=== PATIENT | female | born 2000 | race Hispanic/Latino ===

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

== ENCOUNTER 2020-01-05 08:48 | Emergency (ER) | payer BC ==
[2020-01-05 09:50] LABS: Absolute Lymphocytes (CBC) 1.6 K/uL (0.7-4.9); Basophils % 0.2 % (0-1.3); Hematocrit 42.1 % (36.0-45.0); MPV 8.4 fL (7.6-11.3); RBC Red Blood Cell Count 4.79 M/uL (3.86-4.86)
[2020-01-05 10:03] LABS: ALT/SGPT 19 U/L (12-78); AST/SGOT 15 U/L (15-37); Albumin 4.2 g/dL (3.4-5.0); Alkaline Phosphatase 80 U/L (45-117); BUN Blood Urea Nitrogen 9 mg/dL (7-18); Bicarbonate 26 mmol/L (21-32); Bilirubin Direct 0.2 mg/dL (0-0.2); Bilirubin Total 0.8 mg/dL (0.2-1.0); Glucose Level 107 mg/dL (74-106); Lipase 82 U/L (73-393); Potassium 3.7 mmol/L (3.5-5.1); Protein, Total 7.7 g/dL (6.4-8.2); Sodium Level 140 mmol/L (136-145)
[2020-01-05] MEDS ORDERED: ONDANSETRON 4 MG/2 ML VIAL ONE (10:08)
[2020-01-05] MEDS ORDERED: DIPHENHYDRAMINE 50 MG/ML VIAL ONE (10:08)
[2020-01-05] MEDS ORDERED: NA CHLORIDE 0.9% 1,000 ML ONE (10:08)
[2020-01-05] MEDS ORDERED: FAMOTIDINE 20 MG/2 ML VIAL IV ONE (10:09)
--- NOTE | 2020-01-05 11:29 | RAD REPORT ---
EXAM DESCRIPTION: US - Abdomen Exam Limited - 01/05/2020 11:13 am CLINICAL HISTORY: ABD PAIN COMPARISON: Abdomen Exam Limited dated 11/15/2017 FINDINGS: The gallbladder demonstrates no gallstones. No pericholecystic fluid or gallbladder wall t hickening. The common bile duct is normal measuring 5 mm. The liver demonstrates no findings of intrahepatic biliary dilatation. IMPRESSION: Unremarkable examination.
[2020-01-05 12:04] LABS: Barbiturates NEGATIVE (NEGATIVE); Benzodiazepines NEGATIVE (NEGATIVE); Cocaine NEGATIVE (NEGATIVE); METHAMPHETAM NEGATIVE (NEGATIVE); Methadone NEGATIVE (NEGATIVE); Opiates NEGATIVE (NEGATIVE); Phencyclidine NEGATIVE (NEGATIVE); THC Cannibis POSITIVE (NEGATIVE)
--- NOTE | 2020-01-05 12:28 | ER ---
Nurse's Notes [facility] Name: Pooja Wang Age: 19 yrs Sex: Female : 2000 Arrival Date: 01/05/2020 Time: 08:50 Bed 20 Private MD: Diagnosis: Nausea and vomiting Presentation: 01/04 08:55 Chief complaint: Patient states: "I'm an over thinker so I've been over thinking a lot ss of situations. But when I calm myself down my head is still running which makes me nauseous and throw up. I saw Dr. Almonte and he just gave me something for my stomach rather than my anxiety and I just threw that up. I haven't gotten anymore than 4 hours of sleep.". Coronavirus screen: Proceed with normal triage. Patient denies a cough. Patient denies measured and/or subjective temperature greater than 100.4F prior to today's visit. Patient denies travel on a cruise ship or to a country the [facility] currently lists as an affected area. Patient denies contact with known and/or suspected case of COVID-19. Ebola Screen: Patient denies exposure to infectious person. Patient denies travel to an Ebola-affected area in the 21 days before illness onset. Initial Sepsis Screen: Does the patient meet any 2 criteria? No. Patient's initial sepsis screen is negative. Does the patient have a suspected source of infection? No. Patient's initial sepsis screen is negative. Risk Assessment: Do you want to hurt yourself or someone else? Patient reports no desire to harm self or others. Note pt reports she has been dealing with an ex trying to come back into her life and when she even hears his name it upsets her. Onset of symptoms was July 2019. 08:55 Method Of Arrival: Ambulatory ss 08:55 Acuity: SHAUN 5 ss Triage Assessment: 10:10 GI: Reports. 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 - Social history:: Smoking status: Patient denies any tobacco usage or history of. Screenin:00 Abuse screen: Denies threats or abuse. Denies injuries from another. Nutritional ca1 screening: No deficits noted. Tuberculosis screening: No symptoms or risk factors identified. Fall Risk IV access (20 points). Assessment: 10:00 General: Appears in no apparent distress. comfortable, Behavior is calm, cooperative, ca1 appropriate for age. General: Reports anxiety and nausea x 5 days. . Pain: Denies pain. Neuro: Level of Consciousness is awake, alert, obeys commands, Oriented to person, place, time, situation, Appropriate for age. Cardiovascular: Heart tones S1 S2 present Capillary refill < 3 seconds Patient's skin is warm and dry. Respiratory: Airway is patent Respiratory effort is even, unlabored, Respiratory pattern is regular, symmetrical, Breath sounds are clear bilaterally. GI: Abdomen is flat, non-distended, Bowel sounds present X 4 quads. Abd is soft and non tender X 4 quads. : No signs and/or symptoms were reported regarding the genitourinary system. EENT: No signs and/or symptoms were reported regarding the EENT system. Derm: Skin is intact, is healthy with good turgor, Skin is pink, warm \\T\\ dry. Musculoskeletal: Circulation, motion, and sensation intact. Capillary refill < 3 seconds. 11:00 Reassessment: Patient appears in no apparent distress at this time. Patient and/or ca1 family updated on plan of care and expected duration. Pain level reassessed. Patient is alert, oriented x 3, equal unlabored respirations, skin warm/dry/pink. 12:08 Reassessment: Patient appears in no apparent distress at this time. Patient and/or ca1 family updated on plan of care and expected duration. Pain level reassessed. Patient is alert, oriented x 3, equal unlabored respirations, skin warm/dry/pink. 12:42 Reassessment: Patient appears in no apparent distress at this time. Patient is alert, ca1 oriented x 3, equal unlabored respirations, skin warm/dry/pink. Vital Signs: 08:55 BP 138 / 91; Pulse 102; Resp 16; Temp 97.4(TE); Pulse Ox 98% on R/A; Weight 63.5 kg; ss Height 5 ft. 1 in. (154.94 cm); Pain 0/10; 10:05 BP 121 / 75; Pulse 82; Resp 16 S; Pulse Ox 98% on R/A; ca1 11:29 BP 119 / 69; Pulse 102; Resp 16 S; Pulse Ox 97% on R/A; ca1 12:35 BP 123 / 86; Pulse 96; Resp 15 S; Pulse Ox 98% on R/A; ca1 08:55 Body Mass Index 26.45 (63.50 kg, 154.94 cm) ED Course: 08:50 Patient arrived in ED. ag5 08:58 Triage completed. ss 08:59 Arm band placed on right wrist. ss 09:02 Freddie Pepe PA is PHCP. cp 09:02 Itz Celestin MD is Attending Physician. cp 09:35 Initial lab(s) drawn, by me, sent to lab. Inserted saline lock: 20 gauge in right em antecubital area, using aseptic technique. Blood collected. 09:57 Amanda Prince, RN is Primary Nurse. ca1 10:00 Patient has correct armband on for positive identification. Placed in gown. Bed in low ca1 position. Call light in reach. Side rails up X 1. Pulse ox on. NIBP on. Door closed. Noise minimized. Lights dimmed. Warm blanket given. 11:13 US Abdomen Limited: RUQ In Process Unspecified. EDMS 12:43 No provider procedures requiring assistance completed. IV discontinued, intact, ca1 bleeding controlled, No redness/swelling at site. Pressure dressing applied. Administered Medications: 10:00 Drug: NS 0.9% 1000 ml Route: IV; Rate: 1 bolus; Site: right antecubital; ca1 11:05 Follow up: Response: No adverse reaction; IV Status: Completed infusion ca1 10:01 Drug: Pepcid 20 mg Route: IVP; Site: right antecubital; ca1 11:28 Follow up: Response: No adverse reaction ca1 10:04 Drug: Zofran (Ondansetron) 4 mg Route: IVP; Site: right antecubital; ca1 11:05 Follow up: Response: No adverse reaction; Nausea is decreased ca1 10:07 Drug: Benadryl 12.5 mg Route: IVP; Site: right antecubital; ca1 11:28 Follow up: Response: No adverse reaction ca1 Outcome: 12:27 Discharge ordered by . cp 12:43 Discharged to home ambulatory. ca1 12:43 Condition: stable 12:43 Discharge instructions given to patient, Instructed on discharge instructions, follow up and referral plans. no drinking with medication, no driving heavy equipment, medication usage, Demonstrated understanding of instructions, follow-up care, medications, Prescriptions given X 2. 12:43 Patient left the ED. ca1 Signatures: Dispatcher [employer] Andrei Salmeron RN RN em Radha Gomez RN RN ss Page, Corey, PA PA cp Acob, Cheryl, RN RN ca1 Emily Rodriguez ag5 Corrections: (The following items were deleted from the chart) 12:44 12:43 Discharge instructions given to patient, Instructed on discharge instructions, ca1 follow up and referral plans. medication usage, Demonstrated understanding of instructions, follow-up care, medications, Prescriptions given X 2, ca1
--- NOTE | 2020-01-05 12:28 | EDPHYS ---
Physician Documentation [facility] Name: Pooja Wang Age: 19 yrs Sex: Female : 2000 Arrival Date: 01/05/2020 Time: 08:50 Bed 20 Private MD: ED Physician Itz Celestin HPI: 01/04 09:30 This 19 yrs old Female presents to ER via Ambulatory with complaints of cp Anxiety, Nausea. 09:30 The patient presents to the emergency department with nausea, that is moderate, cp vomiting, that is intermittent. 09:30 Onset: The symptoms/episode began/occurred 5 day(s) ago. cp 09:30 Possible causes: anxiety. The symptoms are alleviated by nothing. Associated signs and cp symptoms: Pertinent negatives: constipation, diarrhea, fever, GI bleeding. Severity of symptoms: in the emergency department the symptoms are unchanged despite home interventions. The patient has been recently seen by a physician: Dr. Almonte with similar presenting complaints, given antiemetic. 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 - Social history:: Smoking status: Patient denies any tobacco usage or history of. ROS: 09:35 Constitutional: Negative for body aches, chills, fever. cp 09:35 Eyes: Negative for injury, pain, redness, and discharge. cp 09:35 ENT: Negative for ear pain, sore throat. 09:35 Cardiovascular: Negative for chest pain, palpitations. 09:35 Respiratory: Negative for cough, shortness of breath, wheezing. 09:35 Abdomen/GI: Positive for nausea, vomiting, Negative for diarrhea, constipation, anorexia, hematemesis, black/tarry stool, rectal bleeding. 09:35 Back: Negative for radiated pain. 09:35 Skin: Negative for rash. 09:35 Neuro: Negative for altered mental status, headache, weakness. 09:35 All other systems are negative. Exam: 09:45 Constitutional: The patient appears in no acute distress, alert, awake, cp non-diaphoretic, non-toxic, well developed, well nourished. 09:45 Head/Face: Normocephalic, atraumatic. cp 09:45 Eyes: Periorbital structures: appear normal, Conjunctiva: normal, no exudate, no injection, Sclera: no appreciated abnormality, Lids and lashes: appear normal, bilaterally. 09:45 ENT: External ear(s): are unremarkable, Ear canal(s): are normal, clear, TM's: dullness, bilaterally, Nose: is normal, Mouth: Lips: moist, Oral mucosa: pink and intact, moist, Posterior pharynx: is normal, airway is patent, no erythema, no exudate. 09:45 Neck: ROM/movement: is normal, is supple, no meningismus, no nuchal rigidity, Lymph nodes: no appreciated lymphadenopathy. 09:45 Chest/axilla: Inspection: normal, Palpation: is normal, no crepitus, no tenderness. 09:45 Cardiovascular: Rate: tachycardic, Rhythm: regular. 09:45 Respiratory: the patient does not display signs of respiratory distress, Respirations: normal, no use of accessory muscles, no retractions, labored breathing, is not present, Breath sounds: are clear throughout, no decreased breath sounds, no stridor, no wheezing. 09:45 Abdomen/GI: Inspection: abdomen appears normal, Bowel sounds: active, all quadrants, Palpation: soft, in all quadrants, mild abdominal tenderness, in the epigastric area and right upper quadrant, rebound tenderness, is not appreciated, involuntary guarding, is not appreciated. 09:45 Back: pain, is absent, ROM is normal. 09:45 Skin: no rash present. 09:45 Neuro: Orientation: to person, place \T\ time. Mentation: is normal, Motor: moves all fours, strength is normal. 09:45 Psych: Behavior/mood is pleasant, cooperative, Affect is calm, Judgement / Insight is normal. Delusions/hallucinations are not present. Vital Signs: 08:55 BP 138 / 91; Pulse 102; Resp 16; Temp 97.4(TE); Pulse Ox 98% on R/A; Weight 63.5 kg; ss Height 5 ft. 1 in. (154.94 cm); Pain 0/10; 10:05 BP 121 / 75; Pulse 82; Resp 16 S; Pulse Ox 98% on R/A; ca1 11:29 BP 119 / 69; Pulse 102; Resp 16 S; Pulse Ox 97% on R/A; ca1 12:35 BP 123 / 86; Pulse 96; Resp 15 S; Pulse Ox 98% on R/A; ca1 08:55 Body Mass Index 26.45 (63.50 kg, 154.94 cm) ss MDM: 09:16 Patient medically screened. cp 10:00 Differential diagnosis: gastritis, cholecystitis, pancreatitis, appendicitis, viral cp gastroenteritis, gastroenteritis. 12:27 Data reviewed: vital signs, nurses notes, lab test result(s), radiologic studies, cp ultrasound. 12:27 Counseling: I had a detailed discussion with the patient and/or guardian regarding: the cp historical points, exam findings, and any diagnostic results supporting the discharge/admit diagnosis, lab results, radiology results, to return to the emergency department if symptoms worsen or persist or if there are any questions or concerns that arise at home. Response to treatment: the patient's symptoms have markedly improved after treatment, patient is well hydrated. Special discussion: Based on the patient's Hx, exam, and Dx evaluation, there is no indication for emergent surgery or inpatient Tx. It is understood by the patient/guardian that if the Sx's persist or worsen they need to return immediately for re-evaluation. ED course: VSS. Nausea improved and vomiting resolved. Will discharge to home for continued monitoring. 01/04 09:25 Order name: Basic Metabolic Panel; Complete Time: 10:40 cp 01/04 10:40 Interpretation: Normal except: GLUC 107. cp 01/04 09:25 Order name: CBC with Diff; Complete Time: 10:40 cp 01/04 10:41 Interpretation: Normal except: MCV 87.9; MCH 29.6; ISAMAR% 81.3; LYM% 15.0; NEUT A 8.5. cp 01/04 09:25 Order name: Hepatic Function; Complete Time: 10:40 cp 01/04 09:25 Order name: Lipase; Complete Time: 10:40 cp 01/04 09:25 Order name: UDS; Complete Time: 12:27 cp 01/04 12:27 Interpretation: Normal except: THC POSITIVE. cp 01/04 11:47 Order name: Urine Dipstick--Ancillary (enter results) em1 01/04 09:25 Order name: IV Saline Lock; Complete Time: 09:40 cp 01/04 09:25 Order name: Labs collected and sent; Complete Time: 09:40 cp 01/04 09:25 Order name: Urine Dipstick-Ancillary (obtain specimen); Complete Time: 11:45 cp 01/04 10:42 Order name: US Abdomen Limited: RUQ; Complete Time: 11:32 cp 01/04 11:32 Interpretation: Report reviewed. cp 01/04 09:25 Order name: Urine Test (obtain specimen); Complete Time: 11:45 cp 01/04 11:27 Order name: PO challenge; Complete Time: 11:57 cp Administered Medications: 10:00 Drug: NS 0.9% 1000 ml Route: IV; Rate: 1 bolus; Site: right antecubital; ca1 11:05 Follow up: Response: No adverse reaction; IV Status: Completed infusion ca1 10:01 Drug: Pepcid 20 mg Route: IVP; Site: right antecubital; ca1 11:28 Follow up: Response: No adverse reaction ca1 10:04 Drug: Zofran (Ondansetron) 4 mg Route: IVP; Site: right antecubital; ca1 11:05 Follow up: Response: No adverse reaction; Nausea is decreased ca1 10:07 Drug: Benadryl 12.5 mg Route: IVP; Site: right antecubital; ca1 11:28 Follow up: Response: No adverse reaction ca1 Disposition: 15:54 Co-signature as Attending Physician, Itz Celestin MD I agree with the assessment and kdr plan of care. Disposition: 01/05/20 12:27 Discharged to Home. Impression: Nausea and vomiting. - Condition is Stable. - Discharge Instructions: Nausea and Vomiting, Adult. - Prescriptions for Phenergan 25 mg Rectal Suppository - insert 1 suppository by RECTAL route every 6 hours As needed; 12 suppository. promethazine 25 mg Oral Tablet - take 1 tablet by ORAL route every 6 hours As needed; 20 tablet. - Work release form, Medication Reconciliation Form, Thank You Letter, Antibiotic Education, Prescription Opioid Use form. - Follow up: Private Physician; When: 2 - 3 days; Reason: Recheck today's complaints. - Problem is new. - Symptoms have improved. Signatures: Dispatcher [facility] Itz Celestin MD MD kdr Smirch, Shelby, RN RN ss Freddie Pepe PA PA cp Amanda Prince RN RN ca1 Corrections: (The following items were deleted from the chart) 12:43 12:27 01/05/2020 12:27 Discharged to Home. Impression: Nausea and vomiting. Condition ca1 is Stable. Forms are Medication Reconciliation Form, Thank You Letter, Antibiotic Education, Prescription Opioid Use. Follow up: Private Physician; When: 2 - 3 days; Reason: Recheck today's complaints. Problem is new. Symptoms have improved. cp
[2020-01-05 12:33] LABS: Urine Blood NEGATIVE (NEG); Urine Glucose NEGATIVE (NEG); Urine Protein NEGATIVE (NEG)
[2020-01-05 12:57] VITALS: TEMP 97.4; O2SAT 98
[2020-01-05 13:13] VITALS: BP 123/86
== END 2020-01-05 12:43 | disposition home or self-care (01) ==
LOC: ER 08:48
DX: R11.2 Nausea with vomiting, unspecified (principal); Z88.1 Allergy status to other antibiotic agents
CPT/HCPCS: 96361; 85025; 80048; 36415; 80076; 80307 ×8; 81003; 83690; 76705; 96375; 96374; 99284; J1200; J7030; J2405

== ENCOUNTER 2020-07-31 04:01 | Emergency (ER) | payer BC, SELFPAY ==
[2020-07-31 05:00] LABS: RBC Red Blood Cell Count 4.24 M/uL (3.86-4.86)
[2020-07-31 05:01] LABS: Absolute Lymphocytes (CBC) 2.8 K/uL (0.7-4.9); Basophils % 0.4 % (0-1.3); Hematocrit 36.3 % (36.0-45.0); MPV 7.9 fL (7.6-11.3)
[2020-07-31] MEDS ORDERED: NA CHLORIDE 0.9% 1,000 ML ONE (05:08)
[2020-07-31] MEDS ORDERED: FAMOTIDINE 20 MG/2 ML VIAL IV ONE (05:08)
[2020-07-31] MEDS ORDERED: ONDANSETRON 4 MG/2 ML VIAL ONE (05:38)
[2020-07-31] MEDS ORDERED: MORPHINE 2 MG/ML SYR ONE (05:38)
[2020-07-31 05:54] LABS: ALT/SGPT 15 U/L (12-78); AST/SGOT 9 U/L (15-37); Albumin 3.6 g/dL (3.4-5.0); Alkaline Phosphatase 52 U/L (45-117); BUN Blood Urea Nitrogen 7 mg/dL (7-18); Bicarbonate 26 mmol/L (21-32); Bilirubin Direct 0.1 mg/dL (0-0.2); Bilirubin Total 0.5 mg/dL (0.2-1.0); Glucose Level 94 mg/dL (74-106); HCG, Quantitative 73403 mIU/mL (1-3); Lipase 101 U/L (73-393); Potassium 3.4 mmol/L (3.5-5.1); Protein, Total 7.4 g/dL (6.4-8.2); Sodium Level 139 mmol/L (136-145)
--- NOTE | 2020-07-31 07:01 | EDPHYS ---
Physician Documentation [facility] Name: Pooja Wang Age: 20 yrs Sex: Female : 2000 Arrival Date: 07/31/2020 Time: 04:01 Bed 19 Private MD: Jame Almonte B ED Physician Kvng Seals HPI: 07/31 04:54 This 20 yrs old Female presents to ER via Ambulatory with complaints of mh7 Abdominal Pain, Vomiting - blood. 04:54 The patient presents to the emergency department with nausea, that is moderate, mh7 vomiting, that is intermittent, 2 times since the onset of symptoms, abdominal pain, of the epigastric area, described as burning, and does not radiate. Onset: The symptoms/episode began/occurred today. Possible causes: bad food exposure, Pasta, . The symptoms are aggravated by nothing. The symptoms are alleviated by nothing. Associated signs and symptoms: Pertinent positives: abdominal pain, nausea, vomiting, Pertinent negatives: anorexia, belching, constipation, diarrhea, dysuria, fever, flatulence, GI bleeding, hematuria, vaginal discharge, Vaginal bleeding. Severity of symptoms: At their worst the symptoms were moderate today, in the emergency department the symptoms have improved moderately. 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 - Social history:: Smoking status: Patient denies any tobacco usage or history of. ROS: 04:54 Constitutional: Negative for fever, chills, and weight loss, Eyes: Negative for injury, mh7 pain, redness, and discharge, ENT: Negative for injury, pain, and discharge, Neck: Negative for injury, pain, and swelling, Cardiovascular: Negative for chest pain, palpitations, and edema, Respiratory: Negative for shortness of breath, cough, wheezing, and pleuritic chest pain, Back: Negative for injury and pain, : Negative for injury, bleeding, discharge, and swelling, MS/Extremity: Negative for injury and deformity, Skin: Negative for injury, rash, and discoloration, Neuro: Negative for headache, weakness, numbness, tingling, and seizure, Psych: Negative for depression, anxiety, suicide ideation, homicidal ideation, and hallucinations, Allergy/Immunology: Negative for hives, rash, and allergies, Endocrine: Negative for neck swelling, polydipsia, polyuria, polyphagia, and marked weight changes, Hematologic/Lymphatic: Negative for swollen nodes, abnormal bleeding, and unusual bruising. Exam: 04:54 Constitutional: This is a well developed, well nourished patient who is awake, alert, mh7 and in no acute distress. Head/Face: Normocephalic, atraumatic. Eyes: Pupils equal round and reactive to light, extra-ocular motions intact. Lids and lashes normal. Conjunctiva and sclera are non-icteric and not injected. Cornea within normal limits. Periorbital areas with no swelling, redness, or edema. Neck: Trachea midline, no thyromegaly or masses palpated, and no cervical lymphadenopathy. Supple, full range of motion without nuchal rigidity, or vertebral point tenderness. No Meningismus. Chest/axilla: Normal chest wall appearance and motion. Nontender with no deformity. No lesions are appreciated. Cardiovascular: Regular rate and rhythm with a normal S1 and S2. No gallops, murmurs, or rubs. Normal PMI, no JVD. No pulse deficits. Respiratory: Lungs have equal breath sounds bilaterally, clear to auscultation and percussion. No rales, rhonchi or wheezes noted. No increased work of breathing, no retractions or nasal flaring. Back: No spinal tenderness. No costovertebral tenderness. Full range of motion. Skin: Warm, dry with normal turgor. Normal color with no rashes, no lesions, and no evidence of cellulitis. MS/ Extremity: Pulses equal, no cyanosis. Neurovascular intact. Full, normal range of motion. Neuro: Awake and alert, GCS 15, oriented to person, place, time, and situation. Cranial nerves II-XII grossly intact. Motor strength 5/5 in all extremities. Sensory grossly intact. Cerebellar exam normal. Normal gait. Psych: Awake, alert, with orientation to person, place and time. Behavior, mood, and affect are within normal limits. 04:54 Abdomen/GI: Inspection: gravid appearance, is noted, Bowel sounds: normal, in all quadrants, Palpation: mild abdominal tenderness, in the epigastric area, Rectal exam: the exam is deferred, because of patient request, Indicators: McBurney's point is not tender, Albarran's sign is negative, Rovsing's sign is negative, Obturator sign is negative, Psoas sign is negative, Liver: no appreciated palpable abnormalities, Hernia: not appreciated. Vital Signs: 04:29 Weight 75.75 kg (R); Height 5 ft. 2 in. (157.48 cm); Pain 0/10; lp1 04:30 BP 111 / 82; Pulse 90; Resp 16; Temp 98.3(O); Pulse Ox 100% on R/A; fu 05:00 BP 123 / 80; Pulse 97; Pulse Ox 100% ; fu 06:46 BP 120 / 74; Pulse 80; Resp 18; Pulse Ox 99% on R/A; ea 04:29 Body Mass Index 30.54 (75.75 kg, 157.48 cm) lp1 MDM: 06:58 Differential diagnosis: Nonspecific abd pain, gastritis, pancreatitis. Data reviewed: [facility] vital signs, nurses notes, lab test result(s), Beta HCG: CBC, electrolytes, urinalysis. Data interpreted: Pulse oximetry: on room air. Counseling: I had a detailed discussion with the patient and/or guardian regarding: the historical points, exam findings, and any diagnostic results supporting the discharge/admit diagnosis, lab results, the need for outpatient follow up, to return to the emergency department if symptoms worsen or persist or if there are any questions or concerns that arise at home. Response to treatment: the patient's symptoms have resolved after treatment, the patient's blood pressure is in an acceptable range, mental status has returned to baseline, the patient no longer shows bradycardia, the patient is not short of breath, the patient is not tachycardic, the patient's pain is gone, the patient's temperature has normalized. 07:00 Patient medically screened. [facility] 07/31 04:33 Order name: Basic Metabolic Panel [facility] 07/31 04:33 Order name: CBC with Diff [facility] 07/31 04:33 Order name: Hepatic Function [facility] 07/31 04:33 Order name: Lipase [facility] 07/31 04:33 Order name: HCG-Quantitative [facility] 07/31 05:05 Order name: CBC with Automated Diff; Complete Time: 05:09 [facility] 07/31 05:54 Order name: Basic Metabolic Panel; Complete Time: 06:35 [facility] 07/31 05:54 Order name: Liver (Hepatic) Function; Complete Time: 06:35 [facility] 07/31 05:54 Order name: Lipase; Complete Time: 06:35 [facility] 07/31 05:54 Order name: HCG, Quantitative; Complete Time: 06:35 [facility] 07/31 06:59 Order name: Urine Culture [facility] 07/31 07:00 Order name: Urine --Ancillary (enter results) [facility] 07/31 07:00 Order name: Urine Dipstick--Ancillary (enter results) [facility] 07/31 04:33 Order name: IV Saline Lock; Complete Time: 04:53 [facility] 07/31 04:33 Order name: Labs collected and sent; Complete Time: 04:53 [facility] 07/31 04:33 Order name: Urine Dipstick-Ancillary (obtain specimen); Complete Time: 07:00 [facility] Administered Medications: 04:55 Drug: Pepcid 20 mg Route: IVP; Site: right antecubital; ea 07:11 Follow up: Response: No adverse reaction ea 04:56 Drug: NS 0.9% 1000 ml Route: IV; Rate: 1000 ml; Site: right antecubital; ea 07:10 Follow up: Response: No adverse reaction; IV Status: Completed infusion; IV Intake: ea 1000ml 05:28 Drug: Zofran (Ondansetron) 4 mg Route: IVP; Site: right antecubital; ea 07:11 Follow up: Response: No adverse reaction ea 07:11 Not Given (Patient Refused): morphine 2 mg IVP once; (PAIN>8) RASS on ADMN: Combtv4, ea Very Agttd3, Agttd2, Rstlss1, AlertClm0, Drwsy-1, LtSdtn-2, ModSdtn-3, DpSdtn-4, UnArsble-5 x2 Disposition: 07/31/20 07:00 Discharged to Home. Impression: Upper abdominal pain, unspecified, Vomiting of , unspecified, Urinary tract infection, site not specified. - Condition is Stable. - Discharge Instructions: Nausea and Vomiting, Adult, [id number]-[id number], Urinary Tract Infection, Adult, Zmhr-fj-Zjog, Abdominal Pain During , [id number]-[id number]. - Prescriptions for Zofran ODT 4 mg Oral tablet,disintegrating - place 1 tablet by TRANSLINGUAL route every 8 hours As needed; 6 tablet. Pepcid 20 mg Oral Tablet - take 1 tablet by ORAL route every 12 hours for 5 days; 10 tablet. Macrobid 100 mg Oral Capsule - take 1 capsule by ORAL route every 12 hours for 7 days; 14 capsule. - Work release form, Medication Reconciliation Form, Thank You Letter, Antibiotic Education, Prescription Opioid Use form. - Follow up: Private Physician; When: 1 - 2 days; Reason: Worsening of condition, Recheck today's complaints, Continuance of care, Re-evaluation by your physician. - Problem is new. - Symptoms have improved. Signatures: Dispatcher [employer] EDMS Phuong Payne RN RN lp1 Madalyn Marcos RN RN ea Holmes, Maurice, MD MD mh7 Corrections: (The following items were deleted from the chart) 07:02 07:00 07/31/2020 07:00 Discharged to Home. Impression: Upper abdominal pain, mh7 unspecified; Vomiting of , unspecified. Condition is Stable. Forms are Medication Reconciliation Form, Thank You Letter, Antibiotic Education, Prescription Opioid Use. Follow up: Private Physician; When: 1 - 2 days; Reason: Worsening of condition, Recheck today's complaints, Continuance of care, Re-evaluation by your physician. Problem is new. Symptoms have improved. 7 07:11 07:02 07/31/2020 07:00 Discharged to Home. Impression: Upper abdominal pain, ea unspecified; Vomiting of , unspecified; Urinary tract infection, site not specified. Condition is Stable. Discharge Instructions: Nausea and Vomiting, Adult, Kaew-tc-Qswv, Urinary Tract Infection, Adult, Tplb-ye-Rcow, Abdominal Pain During , Jhns-ap-Qyok. Prescriptions for Zofran ODT 4 mg Oral tablet,disintegrating - place 1 tablet by TRANSLINGUAL route every 8 hours As needed; 6 tablet, Pepcid 20 mg Oral Tablet - take 1 tablet by ORAL route every 12 hours for 5 days; 10 tablet, Macrobid 100 mg Oral Capsule - take 1 capsule by ORAL route every 12 hours for 7 days; 14 capsule. and Forms are Medication Reconciliation Form, Thank You Letter, Antibiotic Education, Prescription Opioid Use. Follow up: Private Physician; When: 1 - 2 days; Reason: Worsening of condition, Recheck today's complaints, Continuance of care, Re-evaluation by your physician. Problem is new. Symptoms have improved. mh7
--- NOTE | 2020-07-31 07:01 | ER ---
Nurse's Notes [facility] Name: Pooja Wang Age: 20 yrs Sex: Female : 2000 Arrival Date: 07/31/2020 Time: 04:01 Bed 19 Private MD: Jame Almonte B Diagnosis: Upper abdominal pain, unspecified;Vomiting of , unspecified;Urinary tract infection, site not specified Presentation: 07/31 04:29 Chief complaint: Patient states: Woken suddenly this morning with vomiting at 0345; lp1 reports "2 drops of blood in vomit"; Denies any other symptoms; States 10 weeks . Coronavirus screen: Client denies travel out of the [place] in the last 14 days. nausea, vomiting. Ebola Screen: No symptoms or risks identified at this time. Risk Assessment: Do you want to hurt yourself or someone else? Patient reports no desire to harm self or others. Onset of symptoms was July 31, 2020 at 03:45. 04:29 Method Of Arrival: Ambulatory lp1 04:29 Acuity: SHAUN 3 lp1 04:54 Initial Sepsis Screen: Does the patient meet any 2 criteria? No. Patient's initial ea sepsis screen is negative. Does the patient have a suspected source of infection? No. Patient's initial sepsis screen is negative. Triage Assessment: 04:32 GI: Pt is actively vomiting. lp1 04:32 General: Appears uncomfortable, Behavior is appropriate for age. Pain: Complains of ea pain in abdomen. Neuro: Level of Consciousness is awake, alert, obeys commands, Oriented to person, place, time. Respiratory: Airway is patent Respiratory effort is even, unlabored, Respiratory pattern is regular, symmetrical. Derm: Skin is pink, warm \\T\\ dry. 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 - Social history:: Smoking status: Patient denies any tobacco usage or history of. Screenin:31 Abuse screen: Denies threats or abuse. Denies injuries from another. Nutritional lp1 screening: No deficits noted. Tuberculosis screening: No symptoms or risk factors identified. Fall Risk None identified. Assessment: 04:54 General: Appears uncomfortable, Behavior is appropriate for age. Pain: Complains of ea pain in abdomen. Neuro: Level of Consciousness is awake, alert, obeys commands, Oriented to person, place, time. Cardiovascular: Patient's skin is warm and dry. Respiratory: Airway is patent Respiratory effort is even, unlabored, Respiratory pattern is regular, symmetrical. GI: Abd is soft and non tender X 4 quads. Derm: Skin is dry, Skin is pale, Skin temperature is warm. 05:59 Reassessment: Patient and/or family updated on plan of care and expected duration. Pain ea level reassessed. Patient is alert, oriented x 3, equal unlabored respirations, skin warm/dry/pink. 06:18 Reassessment: Patient and/or family updated on plan of care and expected duration. Pain ea level reassessed. Patient is alert, oriented x 3, equal unlabored respirations, skin warm/dry/pink. 06:45 Reassessment: Patient and/or family updated on plan of care and expected duration. Pain ea level reassessed. Patient is alert, oriented x 3, equal unlabored respirations, skin warm/dry/pink. Awaiting on urine sample. 07:07 Reassessment: Patient and/or family updated on plan of care and expected duration. Pain ea level reassessed. Patient is alert, oriented x 3, equal unlabored respirations, skin warm/dry/pink. Discharge instruction given to patient, verbalized the understanding of instruction. Pt left ED ambulatory tolerating well. Vital Signs: 04:29 Weight 75.75 kg (R); Height 5 ft. 2 in. (157.48 cm); Pain 0/10; lp1 04:30 BP 111 / 82; Pulse 90; Resp 16; Temp 98.3(O); Pulse Ox 100% on R/A; fu 05:00 BP 123 / 80; Pulse 97; Pulse Ox 100% ; fu 06:46 BP 120 / 74; Pulse 80; Resp 18; Pulse Ox 99% on R/A; ea 04:29 Body Mass Index 30.54 (75.75 kg, 157.48 cm) lp1 Vitals: 04:49 Heart Tones 170. fu ED Course: 04:01 Patient arrived in ED. am2 04:02 Jame Almonte MD is Private Physician. am2 04:24 Kvng Seals MD is Attending Physician. [facility] 04:30 Triage completed. lp1 04:30 Arm band placed on. lp1 04:32 Madalyn Marcos RN is Primary Nurse. ea 04:32 Patient has correct armband on for positive identification. Bed in low position. Call ea light in reach. Side rails up X2. 04:53 No provider procedures requiring assistance completed. Inserted saline lock: 20 gauge ea in right antecubital area, using aseptic technique. Blood collected. 07:00 IV discontinued, intact, bleeding controlled, No redness/swelling at site. Pressure ea dressing applied. Administered Medications: 04:55 Drug: Pepcid 20 mg Route: IVP; Site: right antecubital; ea 07:11 Follow up: Response: No adverse reaction ea 04:56 Drug: NS 0.9% 1000 ml Route: IV; Rate: 1000 ml; Site: right antecubital; ea 07:10 Follow up: Response: No adverse reaction; IV Status: Completed infusion; IV Intake: ea 1000ml 05:28 Drug: Zofran (Ondansetron) 4 mg Route: IVP; Site: right antecubital; ea 07:11 Follow up: Response: No adverse reaction ea 07:11 Not Given (Patient Refused): morphine 2 mg IVP once; (PAIN>8) RASS on ADMN: Combtv4, ea Very Agttd3, Agttd2, Rstlss1, AlertClm0, Drwsy-1, LtSdtn-2, ModSdtn-3, DpSdtn-4, UnArsble-5 x2 Intake: 07:10 IV: 1000ml; Total: 1000ml. ea Outcome: 07:00 Discharge ordered by . [facility] 07:09 Discharged to home ambulatory. ea 07:09 Condition: stable 07:09 Discharge instructions given to patient, Instructed on discharge instructions, follow up and referral plans. medication usage, Demonstrated understanding of instructions, follow-up care, medications, Prescriptions given X 3. 07:11 Patient left the ED. ea Signatures: Phuong Payne RN RN lp1 Yelena Mcarthur am2 Madalyn Marcos RN RN ea Umadhay, Felix, RN RN fu Holmes, Maurice, MD MD mh7
[2020-07-31 07:17] VITALS: TEMP 98.3
[2020-07-31 07:21] VITALS: BP 120/74; O2SAT 99
[2020-07-31 07:26] LABS: Urine Blood NEGATIVE (NEG); Urine Glucose NEGATIVE (NEG); Urine Protein NEGATIVE (NEG)
== END 2020-07-31 07:11 | disposition home or self-care (01) ==
LOC: ER 04:01
DX: O23.41 Unspecified infection of urinary tract in pregnancy, first trimester (principal); O21.9 Vomiting of pregnancy, unspecified; O99.891 Other specified diseases and conditions complicating pregnancy; R10.13 Epigastric pain; Z3A.13 13 weeks gestation of pregnancy
CPT/HCPCS: 96361; 87088; 85025; 87086; 80048; 36415; 81025; 80076; 84702; 81003; 83690; 96375; 96374; 99284; J2270; J7030; J2405

== ENCOUNTER 2025-03-28 12:49 | Emergency (ER) | payer OTHER, SELFPAY ==
--- NOTE | 2025-03-28 14:54 | RAD REPORT ---
EXAMINATION: Transvaginal OB COMPARISON: None. HISTORY: [facility] MAIN Abd cramping, ;Vaginal bleeding Bed Name: IW2 TECHNIQUE: Real-time ultrasound was performed through the pelvis. A transvaginal scan was performed t o better visualize the intrauterine contents and adnexa. FINDINGS: There is a single living intrauterine . No yolk sac identified. Small crescentic hypodense collection along the left margin of the decidua ex tending towards the lower segment measuring up to 1.9 cm in greatest diameter and 5 mm in thickness. Both ovaries are visualized and appear unremarkable. There is no free fluid in the cul-de-sac. Measurements and Calculations: Gestational sac seen near the fundus with mean diameter of 6.1 mm. Small pole measuring 2.4 mm with no heart rate detected. Findings are compatible with sonographic age of 5 weeks and 3 days. The patient's LMP dates are 02/11/2025. IMPRESSION: Small gestational sac with possible small pole, however with no cardiac pulsations detect ed. Sonographic gestational age calculated at 5 weeks and 3 days. Findings may relate to very early versus demise. Subchorionic small hemorrhage measuring 1.9 cm in greatest dimension. Close clinical follow-up, and serial beta hCG trending are recommended.
[2025-03-28 15:05] LABS: Absolute Lymphocytes (CBC) 2.5 K/uL (0.7-4.9); Hematocrit 37.1 % (36.0-45.0); Hemoglobin 12.2 g/dL (12.0-15.0); MCH 26.6 pg (27.0-35.0); MCHC 32.8 g/dL (32.0-36.0); MCV 80.9 fL (80-100); MPV 7.5 fL (7.6-11.3); Nucleated RBC Absolute Count 0.0 (0-0); Nucleated Red Blood Cells % 0.1 % (0-0); RBC Red Blood Cell Count 4.59 M/uL (3.86-4.86); White Blood Count 18.00 thou/uL (4.3-10.9)
[2025-03-28 15:39] LABS: Anion Gap 9.9 mEq/L (5.0-15.0); BUN Blood Urea Nitrogen 13.0 mg/dL (7-18); Glucose Level 93.0 mg/dL (74-106); HCG, Quantitative 2551.0 mIU/mL (1-3)
[2025-03-28 15:44] LABS: Potassium 3.9 mEq/L (3.5-5.1)
--- NOTE | 2025-03-28 16:46 | EDPHYS ---
Physician Documentation [facility] Name: Pooja Wang Age: 24 yrs Sex: Female : 2000 Arrival Date: 03/28/2025 Time: 12:49 Bed 10 Private MD: ED Physician Carlito Frey HPI: 03/28 14:08 This 24 yrs old Female presents to ER via Ambulatory with complaints of kb Vaginal Bleeding. 14:08 Patient is a 24-year-old female who presents for vaginal bleeding that occurred this kb morning and has since stopped. States her LMP was February 11, 2025. States she had unprotected intercourse shortly after that but took a Plan B for 5 days later. States she took a test 2 weeks ago that was negative. Denies any vaginal bleeding or pain at this time.. 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 - Infectious Disease History:: Denies. - Social history:: Smoking status: Patient denies any tobacco usage or history of. ROS: 14:09 Constitutional: As per HPI kb Exam: 14:09 Constitutional: This is a well developed, well nourished patient who is awake, alert, kb and in no acute distress. Head/Face: Normocephalic, atraumatic. ENT: Moist Mucous membranes Cardiovascular: Regular rate Respiratory: Respirations even and unlabored. No increased work of breathing. Talking in full sentences Abdomen/GI: Soft, non-tender. No distention Skin: Warm, dry with normal turgor. Normal color. MS/ Extremity: Pulses equal, no cyanosis. Neurovascular intact. Full, normal range of motion. Neuro: Awake and alert, GCS 15, oriented to person, place, time, and situation. Vital Signs: 13:16 BP 146 / 92; Pulse 92; Resp 16; Temp 98.1; Pulse Ox 100% ; Weight 95.25 kg; Pain 0/10; dd2 17:06 BP 138 / 88; Pulse 82; Resp 16; Pulse Ox 99% ; db 13:16 Pain Scale: Adult dd2 MDM: 12:51 Medical Screening Exam initiated kb 16:42 Data reviewed: vital signs, nurses notes. kb 16:43 Differential diagnosis: ectopic , menorrhea, threatened Ab, retained Ab, kb uterine fibroids. Counseling: I had a detailed discussion with the patient and/or guardian regarding the historical points, exam findings, and any diagnostic results supporting the discharge/admit diagnosis, lab results, radiology results, the need for outpatient follow up, an OB/Gyne specialist, to return to the emergency department if symptoms worsen or persist or if there are any questions or concerns that arise at home. ED course: Pt has an OB with [facility]. Will call tomorrow to make an appt for close follow up. 03/28 13:24 Order name: Test, Urine; Complete Time: 13:39 kb 03/28 13:39 Order name: Abo/rh Typing; Complete Time: 16:27 kb 03/28 13:39 Order name: Basic Metabolic Panel; Complete Time: 15:44 kb 03/28 13:39 Order name: CBC with Diff; Complete Time: 15:10 kb 03/28 13:39 Order name: Quantitative Hcg; Complete Time: 15:44 kb 03/28 16:29 Order name: ABO/RH no charge; Complete Time: 16:29 EDMS 03/28 13:39 Order name: US Transvaginal Ob; Complete Time: 14:56 kb 03/28 13:39 Order name: IV Saline Lock; Complete Time: 14:18 kb 03/28 13:39 Order name: Labs collected and sent; Complete Time: 14:18 kb 03/28 13:39 Order name: NPO; Complete Time: 14:18 kb 03/28 14:33 Order name: Labs - recollect needed: recollect abo\E\rh, lavender and green tops; bd Complete Time: 14:56 Administered Medications: No medications were administered Disposition: 17:12 Co-signature as Attending Physician, Carlito Frey MD I reviewed the patient's care rn provided by the Advanced Practice Provider and agree with the diagnosis and treatment plan. Disposition Summary: 03/28/25 16:46 Discharge Ordered Notes: Location: Home kb Condition: Stable kb Diagnosis - Threatened kb Followup: kb - With: Emergency Department - When: As needed - Reason: Worsening of condition Followup: kb - With: Private Physician - When: 2 - 3 days - Reason: Recheck today's complaints, Continuance of care, Re-evaluation by your physician Discharge Instructions: - Discharge Summary Sheet kb - Threatened Miscarriage, [id number] kb - Vaginal Bleeding During , First Trimester, [id number] kb Forms: - Work release form kb - Medication Reconciliation Form kb - Antibiotic Education kb - Prescription Opioid Use kb - Patient Portal Instructions kb - Leadership Thank You Letter kb Signatures: Dispatcher [employer] EDRosa Watson, SARAH-C SARAH-Steffany Art Roman, MD MD rn SANJIV LEIGH RN RN dd2
--- NOTE | 2025-03-28 16:46 | ER ---
Nurse's Notes [facility] Name: Pooja Wang Age: 24 yrs Sex: Female : 2000 Arrival Date: 03/28/2025 Time: 12:49 Bed 10 Private MD: Diagnosis: Threatened Presentation: 03/28 13:16 Chief complaint: Patient states: SHE STARTED BLEEDING TODAY BUT NOW ONLY BLOOD WHEN dd2 WIPING. REPORTS LAST PERIOD FEB 11. REPORTS HAD UNPROTECTED SEX ON 03/02, TOOK PLAN B 4 DAYS LATER. Coronavirus screen: At this time, the client does not indicate any symptoms associated with coronavirus-19. Ebola Screen: No symptoms or risks identified at this time. Initial Sepsis Screen: Does the patient meet any 2 criteria? No. Patient's initial sepsis screen is negative. Does the patient have a suspected source of infection? No. Patient's initial sepsis screen is negative. Risk Assessment: Do you want to hurt yourself or someone else? Patient reports no desire to harm self or others. Onset of symptoms was March 28, 2025 at 08:00. 13:16 Method Of Arrival: Ambulatory dd2 13:16 Acuity: SHAUN 3 dd2 Triage Assessment: 13:20 General: Appears in no apparent distress. Behavior is calm, cooperative, appropriate dd2 for age. Pain: Denies pain. : Reports vaginal bleeding that is. 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 - Infectious Disease History:: Denies. - Social history:: Smoking status: Patient denies any tobacco usage or history of. Screenin:06 [facility] ED Fall Risk Assessment (Adult) History of falling in the last 3 months, db including since admission No falls in past 3 months (0 pts) Confusion or Disorientation No (0 pts) Intoxicated or Sedated No (0 pts) Impaired Gait No (0 pts) Mobility Assist Device Used No (0 pt) Altered Elimination No (0 pt) Score/Fall Risk Level 0 - 2 = Low Risk Oriented to surroundings, Maintained a safe environment. Abuse screen: Denies threats or abuse. Denies injuries from another. Nutritional screening: No deficits noted. Tuberculosis screening: No symptoms or risk factors identified. Assessment: 17:06 Reassessment: Patient appears in no apparent distress at this time. Patient and/or db family updated on plan of care and expected duration. Pain level reassessed. Patient is alert, oriented x 3, equal unlabored respirations, skin warm/dry/pink. General: Appears in no apparent distress. comfortable, Behavior is calm, cooperative. Neuro: Level of Consciousness is awake, alert, obeys commands, Oriented to person, place, time, situation. Respiratory: Airway is patent Respiratory effort is even, unlabored, Respiratory pattern is regular, symmetrical. : Reports vaginal bleeding that is. Vital Signs: 13:16 BP 146 / 92; Pulse 92; Resp 16; Temp 98.1; Pulse Ox 100% ; Weight 95.25 kg; Pain 0/10; dd2 17:06 BP 138 / 88; Pulse 82; Resp 16; Pulse Ox 99% ; db 13:16 Pain Scale: Adult dd2 ED Course: 12:50 Patient arrived in ED. al6 12:51 Rosa Vera FNP-C [facility]. kb 12:51 Carlito Frey MD is Attending Physician. kb 13:20 Triage completed. dd2 13:20 Arm band placed on right wrist. dd2 14:07 US Transvaginal Ob In Process Unspecified. EDMS 14:17 Initial lab(s) drawn, by me, sent to lab. Inserted saline lock: 20 gauge in right hand, rk3 using aseptic technique. 17:06 Patient has correct armband on for positive identification. Bed in low position. Call db light in reach. Side rails up X 1. Provided Education on: DISCHARGE AND FOLLOWUP. Warm blanket given. Pillow given. 17:06 No provider procedures requiring assistance completed. IV discontinued, intact, db bleeding controlled, No redness/swelling at site. Administered Medications: No medications were administered Medication: 17:06 VIS not applicable for this client. db Outcome: 16:46 Discharge ordered by . kb 17:08 Discharged to home ambulatory, db 17:08 Condition: stable 17:08 Discharge instructions given to patient, Instructed on discharge instructions, follow up and referral plans. 17:08 Patient left the ED. db Signatures: Dispatcher [employer] EDMS Rosa Vera FNP-C [employer]-Ckb Delphine Griffiths, RN RN db SANJIV LEIGH RN RN dd2 Jaleesa Haney al6 Katelynn Arzola rk3
[2025-03-28 17:14] VITALS: TEMP 98.1
[2025-03-28 17:16] VITALS: BP 138/88; O2SAT 99
== END 2025-03-28 17:08 | disposition home or self-care (01) ==
LOC: ER 12:49
DX: O20.0 Threatened abortion (principal)
CPT/HCPCS: 36415; 76817; 80048; 81025; 84702; 85025; 86900; 86901; 99283